=== PATIENT | female | born 1960 | race Caucasian/White ===

== ENCOUNTER → 2016-03-17 | Outpatient (CLI) | payer MEDICAID, OTHER ==
--- NOTE | 2016-03-17 15:06 | MA ---
Screening Digital Mammogram Clinical Indications: Routine screening. Technique: Standard cephalocaudal and mediolateral oblique projections are obtained. This examinati on is processed by the [employer] computer aided detection system. Comparison: January 2015, December 2013, June 2012 and January 2011 Breast density: B; There are scattered fibroglandular densities. Findings: CAD was reviewed. No suspicious findings are identified. Impression: Negative mammogram. . BI-RADS 1. Recommendation: Routine screening is recommended in one year. [facility] will send a result letter to the patient. Negative mammography should not preclude additional workup of a clinically suspicious finding. The patient's information is entered into a reminder system with a target due date for her next mammo gram.
== END ==
LOC: FIMAGING 14:41
DX: Z12.31 Encounter for screening mammogram for malignant neoplasm of breast (principal)
CPT/HCPCS: G0202

== ENCOUNTER 2017-04-03 09:24 | Emergency (ER) | payer MEDICAID ==
[2017-04-03 09:32] VITALS: RESP 16; O2SAT 96
--- NOTE | 2017-04-03 09:33 | EDPHY ---
H & P Smoking Status: Never smoked Time Seen by Provider: 04/03/17 09:25 HPI/ROS: CHIEF COMPLAINT: Right wrist pain post foosh HISTORY OF PRESENT ILLNESS: 56-year-old female left hand dominant complaining of right wrist pain after she sustained a mechanical fall on outstretched right hand yesterday while shoveling snow. Intact skin. No paresthesia. No head injury. No proximal distal pain or injury. PHYSICAL EXAM (Prior to examination, patient consented to physical exam, hands were washed and my usual and customary physical exam procedures followed) 1) GENERAL: Well-developed, well-nourished, alert and oriented. Appears to be in no acute distress. 2) HEAD: Normocephalic 3) HEENT: Pupils equal, round, reactive to light bilaterally. 4) LUNGS: Breathing comfortably. 5) MUSCULOSKELETAL: No visible deformity. No angulation. Tender to palpation distal radius. Soft compartments. Normal coloration. 6) SKIN: Intact 7) VASCULAR: pulses and cap refill present are brisk 8) NEUROLOGIC: Radial, ulnar, median nerve function intact with no deficits appreciated on exam DIFFERENTIAL DIAGNOSIS: in no particular order including but not limited to fracture, sprain, compartment syndrome Procedure: Splint In Ortho Glass sugar-tong splint and sling was applied by ER certified appliance service technician. After application of the splint I returned and re-examined the patient. The splint was adequately immobilizing the joint and distal to the splint the patient's circulation and sensation were intact. Patient shows no signs of compartment syndrome. Was given orthopedic precautions. (Mirtha,Eleanor Murphy) Constitutional: Initial Vital Signs Temperature (C) 36.5 C 04/03/17 09:29 Heart Rate 105 H 04/03/17 09:29 Respiratory Rate 16 04/03/17 09:29 Blood Pressure 115/88 H 04/03/17 09:29 O2 Sat (%) 96 04/03/17 09:29 O2 Delivery Mode Room Air Allergies/Adverse Reactions: No Known Allergies Allergy (Verified 08/08/12 23:17) Home Medications: Medication Instructions Recorded Melatonin [Melatonin 3 MG (OTC)] 3 mg PO HS 08/09/12 Multivitamins [Tab-A-Cooper] 1 each PO DAILY 08/09/12 Spencer-3 Fatty Acids [Fish Oil 1000 1,000 mg PO DAILY 08/09/12 mg (OTC)] Pharmacy Completed 08/09/12 08/09/12 Vitamin B Complex [Vitamin B 1 each PO DAILY 08/09/12 Complex (OTC)] MDM/Departure - MDM Imaging Results: Images reviewed by myself (Eleanor Shannon) - Depart Disposition: Home, Routine, Self-Care Clinical Impression: Distal radius fracture, right Qualifiers: Encounter type: initial encounter Fracture type: closed Fracture morphology: unspecified fracture morphology Qualified Code(s): S52.501A - Unspecified fracture of the lower end of right radius, initial encounter for closed fracture Fall from slipping on ice Qualifiers: Encounter type: initial encounter Qualified Code(s): W00.9XXA - Unspecified fall due to ice and snow, initial encounter Condition: Good Instructions: Wrist Fracture in Adults (ED) Additional Instructions: Return to the ER immediately if you experience discoloration, have worsening pain, numbness, tingling, or any other symptoms that concern you. If you received x-rays in the emergency department today, be advised, that ligamentous , tendon, muscular, and other non-bony injury cannot be fully ruled out. Try to keep your affected extremity elevated above the level of your chest, and keep cold packs on the affected area, for the next 48 hours. Referrals: Orlando Benton MD [Medical Doctor] - 2-3 days, if not improved
[2017-04-03 10:25] VITALS: BP 132/70; PULSE 78; TEMP 98.1
== END 2017-04-03 10:25 | disposition home or self-care (01) ==
DX: S52.501A Unspecified fracture of the lower end of right radius, initial encounter for closed fracture (principal); W00.9XXA Unspecified fall due to ice and snow, initial encounter; Y99.8 Other external cause status; Y93.H1 Activity, digging, shoveling and raking

== ENCOUNTER → 2017-04-13 | Outpatient (CLI) | payer MEDICAID | LOC: BMCIMAGING 08:12 | PROVIDERS: ATTEND Physician Assistant | DX: S52.501D Unspecified fracture of the lower end of right radius, subsequent encounter for closed fracture with routine healing (principal) ==

== ENCOUNTER → 2017-04-27 | Outpatient (CLI) | payer MEDICAID | LOC: BMCIMAGING 09:59 | PROVIDERS: ATTEND Physician Assistant | DX: S62.101D Fracture of unspecified carpal bone, right wrist, subsequent encounter for fracture with routine healing (principal); X58.XXXD Exposure to other specified factors, subsequent encounter ==

== ENCOUNTER → 2017-05-11 | Outpatient (CLI) | payer MEDICAID | LOC: BMCIMAGING 10:17 | PROVIDERS: ATTEND Physician Assistant | DX: S52.501D Unspecified fracture of the lower end of right radius, subsequent encounter for closed fracture with routine healing (principal) ==

== ENCOUNTER → 2018-06-26 | Outpatient (CLI) | payer MEDICAID | LOC: FIMAGING 09:01 | PROVIDERS: ATTEND Internal Medicine | DX: Z12.31 Encounter for screening mammogram for malignant neoplasm of breast (principal) ==